=== PATIENT | female | born 1995 | race Caucasian/White ===

== ENCOUNTER 2018-10-12 18:32 | Emergency (ER) | payer OTHER ==
[~2018-10-12] VITALS: Ht 162.6 cm; Wt 150.0 kg
[2018-10-12] MEDS ORDERED: SODIUM CHLORIDE FLUSH 10ML SYR IVF ONE (19:00)
[2018-10-12 19:10] LABS: BASOPHILS # (AUTO) 0.05 x10^3/uL (0-0.1); BASOPHILS % (AUTO) 1 % (0-1); EOSINOPHILS # (AUTO) 0.08 x10^3/uL (0-0.4); EOSINOPHILS % (AUTO) 1 % (1-7); LYMPHOCYTES # (AUTO) 2.86 x10^3/uL (1-3.4); LYMPHOCYTES % (AUTO) 28 % (22-44); MD NO; MEAN CORPUSCULAR HEMOGLOBIN 23.3 pg (27.0-34.8); MEAN CORPUSCULAR HGB CONC 31.3 g/dL (32.4-35.8); MEAN CORPUSCULAR VOLUME 74.6 fL (80-100); MEAN PLATELET VOLUME 8.6 fL (7.4-10.4); MONOCYTES % (AUTO) 7 % (2-9); NEUTROPHILS % (AUTO) 64 % (42-75); PLATELET COUNT 380 x10^3/uL (130-400); RED BLOOD COUNT 4.62 x10^6/uL (3.82-5.3); RED CELL DISTRIBUTION WIDTH 15.9 % (9.6-15.2)
[2018-10-12 19:15] LABS: ALBUMIN 3.8 g/dL (3.4-5.0); ANION GAP 9 mmol/L (5-15); CALCIUM 8.8 mg/dL (8.5-10.1); CHLORIDE 109 mmol/L (98-107); CREATININE 0.76 mg/dL (0.55-1.02)
--- NOTE | 2018-10-12 19:24 | NUR ---
PT SENT FROM [facility] FOR ELEVATED D-DIMER. PT "WORRIED I HAVE A BLOOD CLOT IT HURTS TO BREATH AND I FEEL SHORT OF BREATH ALL THE TIME."
[2018-10-12 19:28] LABS: TROPONIN I < 0.015 ng/mL (0.000-0.045)
--- NOTE | 2018-10-12 20:02 | NUR ---
PT IN IMAGING.
[2018-10-12] MEDS ORDERED: OMNIPAQUE 350 MG/ML, 150 ML BOTTLE ONE (20:10)
--- NOTE | 2018-10-12 20:45 | NUR ---
PT IS RESTING ON GURNEY WITH FAMILY AT BEDSIDE. VSS.
--- NOTE | 2018-10-12 21:23 | NUR ---
VSS. PT UPDATED ON POC. WAITING TO BE TAKEN TO ULTRASOUND.
--- NOTE | 2018-10-12 21:50 | NUR ---
PT TAKEN TO ULTRASOUND
--- NOTE | 2018-10-12 22:16 | NUR ---
PT BACK FROM ULTRASOUND.
--- NOTE | 2018-10-12 22:40 | NUR ---
Patient/Caregiver given discharge instructions and they have confirmed that they understand the instructions. Patient ambulatory with steady gait.
[2018-10-12 22:41] VITALS: BP 132/72
== END 2018-10-12 22:43 | disposition home or self-care (01) ==
LOC: ED 22:15
DX: R07.89 Other chest pain (principal); R06.00 Dyspnea, unspecified; M79.662 Pain in left lower leg
CPT/HCPCS: 36415; 71275; 80048; 82040; 83880; 84484; 85025; 93005; 93970; 99284; Q9967

== ENCOUNTER 2019-05-06 15:49 | Emergency (ER) | payer OTHER ==
[~2019-05-06] VITALS: Ht 165.1 cm; Wt 150.0 kg
[2019-05-06 16:05] VITALS: BP 148/102
--- NOTE | 2019-05-06 19:56 | NUR ---
PT CALLED FROM TRIAGE, NO ANSWER, LWBS PER REG, AMA SIGNED
== END 2019-05-06 20:00 | disposition left against medical advice (07) ==
LOC: ED 19:50
DX: O26.892 Other specified pregnancy related conditions, second trimester (principal); R06.02 Shortness of breath; Z3A.27 27 weeks gestation of pregnancy
CPT/HCPCS: 93005; 99281

== ENCOUNTER 2019-06-07 14:10 | Observation (INO) | payer OTHER ==
[~2019-06-07] VITALS: Ht 167.6 cm; Wt 150.4 kg
[2019-06-07 15:15] VITALS: BP 142/85
[2019-06-07 15:48] LABS: BASOPHILS # (AUTO) 0.04 x10^3/uL (0-0.1); BASOPHILS % (AUTO) 0 % (0-1); EOSINOPHILS # (AUTO) 0.04 x10^3/uL (0-0.4); EOSINOPHILS % (AUTO) 0 % (1-7); LYMPHOCYTES % (AUTO) 12 % (22-44); MD NO; MEAN CORPUSCULAR HEMOGLOBIN 26.9 pg (27.0-34.8); MEAN CORPUSCULAR HGB CONC 32.3 g/dL (32.4-35.8); MEAN CORPUSCULAR VOLUME 83.4 fL (80-100); MEAN PLATELET VOLUME 8.4 fL (7.4-10.4); MONOCYTES # (AUTO) 0.71 x10^3/uL (0.2-0.8); MONOCYTES % (AUTO) 5 % (2-9); NEUTROPHILS # (AUTO) 12.37 x10^3/uL (1.8-6.8); NEUTROPHILS % (AUTO) 83 % (42-75); PLATELET COUNT 240 x10^3/uL (130-400); RED BLOOD COUNT 4.86 x10^6/uL (3.82-5.3); RED CELL DISTRIBUTION WIDTH 14.5 % (9.6-15.2)
[2019-06-07 16:02] LABS: ALANINE AMINOTRANSFERASE 13 U/L (12-78); ALBUMIN 2.8 g/dL (3.4-5.0); ANION GAP 7 mmol/L (5-15); CHLORIDE 107 mmol/L (98-107); CREATININE 0.51 mg/dL (0.55-1.02)
[2019-06-07 16:04] LABS: ALKALINE PHOSPHATASE 99 U/L (45-117); BILIRUBIN,TOTAL 0.3 mg/dL (0.2-1.0); TOTAL PROTEIN 7.1 g/dL (6.4-8.2)
[2019-06-07 16:11] LABS: MICROSCOPIC INDICATED
[2019-06-07 17:56] LABS: AMPHETAMINE SCREEN, URINE Negative (Negative); BARBITURATE SCREEN, URINE Negative (Negative); BENZODIAZEPINE SCREEN, URINE Negative (Negative); CANNABINOID SCREEN, URINE Negative (Negative); COCAINE SCREEN, URINE Negative (Negative); METHADONE SCREEN, URINE Negative (Negative); OPIATE SCREEN, URINE Negative (Negative)
[2019-06-07] MEDS ORDERED: ASPI-515 PO (18:02)
[2019-06-07] MEDS ORDERED: PREN1TAB10 PO (18:02)
[2019-06-07] MEDS ORDERED: BETAMETHASONE 6 MG/ML, 5ML IM ONE (18:27)
[2019-06-07] MEDS ORDERED: LABETALOL 200 MG TABLET ONE (18:27)
[2019-06-07] MEDS ORDERED: ACETAMINOPHEN 325 MG TABLET PO PRN (18:30)
[2019-06-07] MEDS: LABETALOL 200 MG TABLET PO SCH (18:30)
[2019-06-07] MEDS ORDERED: DIPHENHYDRAMINE 25 MG CAPSULE PO PRN (18:30)
[2019-06-07] MEDS: BETAMETHASONE 6 MG/ML, 5ML IM SCH (18:32)
[2019-06-07 19:59] VITALS: BP 117/71
[2019-06-07] MEDS ORDERED: ASPIRIN 81 MG TABLET EC ONE (21:27)
[2019-06-07 23:45] VITALS: BP 112/71
[2019-06-08 02:54] VITALS: BP 150/74
[2019-06-08] MEDS ORDERED: LABETALOL 200 MG TABLET ONE ×2 (06:08→18:00)
[2019-06-08 06:10] VITALS: BP 135/70
[2019-06-08] MEDS: LABETALOL 200 MG TABLET PO SCH ×2 (06:10→18:01)
[2019-06-08] MEDS ORDERED: ASPIRIN 81 MG TABLET CHEW PO SCH (09:00)
[2019-06-08] MEDS: BETAMETHASONE 6 MG/ML, 5ML IM SCH (18:02)
== END 2019-06-08 20:00 | disposition home or self-care (01) ==
LOC: LDOP 14:10 → LDIP 16:00
PROVIDERS: ADMIT Obstetrics & Gynecology; ATTEND Obstetrics & Gynecology
DX: O13.3 Gestational [pregnancy-induced] hypertension without significant proteinuria, third trimester (principal); O99.213 Obesity complicating pregnancy, third trimester; E66.01 Morbid (severe) obesity due to excess calories; O99.333 Smoking (tobacco) complicating pregnancy, third trimester; F17.200 Nicotine dependence, unspecified, uncomplicated; O99.323 Drug use complicating pregnancy, third trimester; F12.90 Cannabis use, unspecified, uncomplicated; Z3A.31 31 weeks gestation of pregnancy; Z79.899 Other long term (current) drug therapy
CPT/HCPCS: 36415; 59025; 80053; 80307; 81001; 82570; 84156; 84550; 85025; 87086; 96372; 99211; G0378; J0702; G0463

== ENCOUNTER 2019-07-08 09:30 | Outpatient (CLI) | payer OTHER ==
[~2019-07-08] VITALS: Ht 165.1 cm; Wt 154.0 kg
[~2019-07-08 09:30] MED LIST: ASPI-515 PO; PREN1TAB10 PO
[2019-07-08 10:42] LABS: BASOPHILS # (AUTO) 0.04 x10^3/uL (0-0.1); BASOPHILS % (AUTO) 0 % (0-1); EOSINOPHILS # (AUTO) 0.12 x10^3/uL (0-0.4); EOSINOPHILS % (AUTO) 1 % (1-7); LYMPHOCYTES # (AUTO) 1.24 x10^3/uL (1-3.4); LYMPHOCYTES % (AUTO) 10 % (22-44); MD NO; MEAN CORPUSCULAR HEMOGLOBIN 27.8 pg (27.0-34.8); MEAN CORPUSCULAR HGB CONC 33.2 g/dL (32.4-35.8); MEAN CORPUSCULAR VOLUME 83.7 fL (80-100); MEAN PLATELET VOLUME 8.7 fL (7.4-10.4); MONOCYTES # (AUTO) 0.52 x10^3/uL (0.2-0.8); MONOCYTES % (AUTO) 4 % (2-9); NEUTROPHILS # (AUTO) 10.76 x10^3/uL (1.8-6.8); NEUTROPHILS % (AUTO) 85 % (42-75); PLATELET COUNT 267 x10^3/uL (130-400); RED BLOOD COUNT 4.46 x10^6/uL (3.82-5.3); RED CELL DISTRIBUTION WIDTH 13.6 % (9.6-15.2)
[2019-07-08 10:54] LABS: ALANINE AMINOTRANSFERASE 14 U/L (12-78); ALBUMIN 2.4 g/dL (3.4-5.0); ANION GAP 5 mmol/L (5-15); CALCIUM 8.7 mg/dL (8.5-10.1); CHLORIDE 107 mmol/L (98-107); CREATININE 0.54 mg/dL (0.55-1.02)
[2019-07-08 10:56] LABS: ALKALINE PHOSPHATASE 128 U/L (45-117); BILIRUBIN,TOTAL 0.2 mg/dL (0.2-1.0); TOTAL PROTEIN 6.6 g/dL (6.4-8.2)
== END 2019-07-08 13:10 | disposition home or self-care (01) ==
LOC: LDOP 09:30
PROVIDERS: ATTEND Obstetrics & Gynecology
DX: O16.3 Unspecified maternal hypertension, third trimester (principal); Z3A.36 36 weeks gestation of pregnancy
CPT/HCPCS: 36415; 59025; 80053; 82570; 84156; 84550; 85025; 99211; G0463